=== PATIENT | male | born 1950 | race Caucasian/White ===

== ENCOUNTER 2018-04-09 06:27 | Day surgery (SDC) | END 2018-04-09 12:56 | disposition home or self-care (01) ==

== ENCOUNTER 2018-11-28 11:19 | Emergency (ER) | payer MEDICARE, OTHER ==
[~2018-11-28] VITALS: Wt 78.0 kg
[~2018-11-28 11:19] MED LIST: ASPI81TA52 PO; HYDR-3671 PO; ISOS30TA67 PO; LOSA100T15 PO; NIFE90TA21 PO; PANT40TA4 PO; PRAV40TA76 PO
[2018-11-28] MEDS ORDERED: NALO25TA PO (12:35)
[2018-11-28] MEDS ORDERED: SPIR25TA PO (12:35)
[2018-11-28] MEDS ORDERED: LINA290C PO (12:38)
[2018-11-28] MEDS ORDERED: FAMO20TA18 PO (12:38)
[2018-11-28] MEDS ORDERED: DOCU-144 PO (13:09)
--- NOTE | 2018-11-28 13:09 | ERD ---
ER Documentation Chief Complaint Chief Complaint CONSTIPATION X 1 WEEK HPI This is a 68-year-old male with a history of hypertension, diabetes, AAA with repair and femoropopliteal bypass bilaterally who presents to the emergency [facility] for evaluation of constipation. The patient states that he is having constipation however he is passing gas. He denies any nausea or vomiting or fevers or chills or chest pain or shortness of breath associated with this. The patient has not taken any medication for symptoms and came to the ER for evaluation. ROS All systems reviewed and are negative except as per history of present illness. Medications Home Meds Active Scripts Pantoprazole* (Pantoprazole*) 40 Mg Tablet., 40 MG PO DAILY@06 for 30 Days, #30 Prov:CARY CALDWELL MD 08/21/18 Reported Medications Linaclotide (LINZESS) 290 Mcg Capsule, 290 MCG PO DAILY, #30 CAP 11/28/18 Famotidine* (Famotidine*) 20 Mg Tablet, 20 MG PO DAILY, #30 TAB 11/28/18 Spironolactone* (Aldactone*) 25 Mg Tablet, 25 MG PO DAILY, #30 TAB 11/28/18 Naloxegol Oxalate (Movantik) 25 Mg Tablet, 25 MG PO DAILY, TAB 11/28/18 Aspirin (Low Dose Aspirin) 81 Mg Tablet.dr, 81 MG PO DAILY, #30 TAB 08/12/18 Pravastatin Sodium* (Pravastatin Sodium*) 40 Mg Tablet, 40 MG PO HS, TAB 04/09/18 Nifedipine* (Nifedipine ER*) 90 Mg Tablet.sa, 90 MG PO DAILY, TAB.SA 04/09/18 Losartan Potassium* (Losartan Potassium*) 100 Mg Tablet, 100 MG PO DAILY, TAB 04/09/18 Isosorbide Mononitrate* (Isosorbide Mononitrate*) 30 Mg Tab.er.24h, 30 MG PO DAILY, TAB 04/09/18 Discontinued Reported Medications Hydralazine Hcl* (Hydralazine Hcl*) 25 Mg Tab, 25 MG PO Q8, #90 TAB 04/09/18 Allergies Allergies: Coded Allergies: No Known Allergy (Unverified , 11/28/18) PMhx/Soc History of Surgery: Yes (lap.christy, knee surgery, HEART BYPASS) Anesthesia Reaction: No Hx Neurological Disorder: No Hx Respiratory Disorders: No Hx Cardiac Disorders: Yes (htn) Hx Psychiatric Problems: No Hx Miscellaneous Medical Probl: No Hx Alcohol Use: No Hx Substance Use: No Hx Tobacco Use: No Smoking Status: Never smoker Physical Exam Vitals Vital Signs Date Temp Pulse Resp B/P (MAP) Pulse Ox O2 O2 Flow FiO2 Time Delivery Rate 11/28/18 97.7 53 18 203/86 99 11:26 (125) Physical Exam Const: No acute distress Head: Atraumatic Eyes: Normal Conjunctiva ENT: Normal External Ears, Nose and Mouth. Neck: Full range of motion. No meningismus. Resp: Clear to auscultation bilaterally Cardio: Regular rate and rhythm, no murmurs Abd: Soft, non tender, non distended. Normal bowel sounds Skin: No petechiae or rashes Back: No midline or flank tenderness Ext: No cyanosis, or edema Neur: Awake and alert Psych: Normal Mood and Affect Result Diagram: 11/28/18 1213 11/28/18 1213 Results 24 hrs Laboratory Tests Test 11/28/18 12:13 White Blood Count 7.3 10^3/ul Red Blood Count 4.50 10^6/ul Hemoglobin 12.9 g/dl Hematocrit 41.2 % Mean Corpuscular Volume 91.6 fl Mean Corpuscular Hemoglobin 28.7 pg Mean Corpuscular Hemoglobin Concent 31.3 g/dl Red Cell Distribution Width 13.7 % Platelet Count 167 10^3/UL Mean Platelet Volume 10.9 fl Immature Granulocytes % 0.300 % Neutrophils % 71.6 % Lymphocytes % 15.5 % Monocytes % 8.6 % Eosinophils % 3.0 % Basophils % 1.0 % Nucleated Red Blood Cells % 0.0 /100WBC Immature Granulocytes # 0.020 10^3/ul Neutrophils # 5.2 10^3/ul Lymphocytes # 1.1 10^3/ul Monocytes # 0.6 10^3/ul Eosinophils # 0.2 10^3/ul Basophils # 0.1 10^3/ul Nucleated Red Blood Cells # 0.0 10^3/ul Sodium Level 141 mmol/L Potassium Level 5.6 mmol/L Chloride Level 109 mmol/L Carbon Dioxide Level 25 mmol/L Anion Gap 7 Blood Urea Nitrogen 33 mg/dl Creatinine 2.28 mg/dl Est Glomerular Filtrat Rate mL/min 29 mL/min Glucose Level 106 mg/dl Calcium Level 9.3 mg/dl Total Bilirubin 0.6 mg/dl Direct Bilirubin 0.00 mg/dl Indirect Bilirubin 0.6 mg/dl Aspartate Amino Transf (AST/SGOT) 20 IU/L Alanine Aminotransferase (ALT/SGPT) 10 IU/L Alkaline Phosphatase 91 IU/L Troponin I < 0.012 ng/ml Total Protein 8.0 g/dl Albumin 4.2 g/dl Globulin 3.80 g/dl Albumin/Globulin Ratio 1.10 Lipase 148 U/L Procedures/MDM CT abdomen pelvis without: 1. No evidence of acute inflammatory process, mass, or lymphadenopathy. 2. 3.0 x 3.4 cm infrarenal abdominal aortic aneurysm extending to the bilateral common iliac arteries with eccentric mural thrombus, as above. 3. Bilateral inguinal fluid collections measuring up to 6.4 cm on the right which appear to be along incision sites and may represent postsurgical seromas versus pseudoaneurysms. Bilateral inguinal ultrasound is recommended for further evaluation. 4. Status post cholecystectomy with pneumobilia. 5. Hyperdense bilateral renal lesions, likely representing cysts. 6. Small nonobstructive left renal calculus. 7. Moderate aortic atherosclerosis This 68-year-old male presents to the ER for evaluation of constipation. On my evaluation the patient had no tenderness to palpation in the abdomen, the patient's incision sites were healed well and lab work was obtained. Lab work does show mildly elevated potassium levels however the patient has no chest pain or shortness of breath. CT the abdomen pelvis was obtained and shows no signs of obstruction. The patient does have a 3 cm x 3.4 cm abdominal aortic aneurysm which was repaired. There is what appears to be possible seromas in the ing uinal areas which can be followed up as an outpatient. There is no abscess formation and the patient has no tenderness in the area. I have spoken to him about his results and the patient is comfortable with our plan of care for discharge with outpatient stool softeners. He was advised to return to the emergency room for reevaluation if he cannot have a bowel movement in the next 12 hours. The patient verbalizes understanding and is okay to plan of care. Differential diagnoses entertained was broad with potential high acuity. Patient has been evaluated for appendicitis, cholecystitis, and other high risk medical and surgical causes of abdominal pain. Ultimately the patient's evaluation is nondiagnostic. Based on the patient's lack of risk factors, as well as the patient's clinical, laboratory, and imaging data, the patient appears to be low risk for these high risk causes of abdominal pain. Departure Diagnosis: Primary Impression: Constipation Additional Impressions: Essential hypertension Chronic kidney disease, stage II (mild) Condition: Fair JESSICA WELLS DO November 28, 2018 13:09
[2018-11-28 13:32] VITALS: BP 181/73; PULSE 56; RESP 17
== END 2018-11-28 13:33 | disposition home or self-care (01) ==
LOC: E/R 11:19
DX: K59.00 Constipation, unspecified (principal); N18.2 Chronic kidney disease, stage 2 (mild); I12.9 Hypertensive chronic kidney disease with stage 1 through stage 4 chronic kidney disease, or unspecified chronic kidney disease
CPT/HCPCS: 36415; 74176; 80053; 83690; 84484; 85025